=== PATIENT | male | born 1975 | race Two or more races ===

== ENCOUNTER 2024-01-04 23:36 | Emergency (ER) | payer MEDICAID, OTHER ==
[~2024-01-04] VITALS: Ht 170.2 cm; Wt 68.2 kg
[2024-01-05] MEDS: IBUPROFEN 600 MG TAB PO ONE (02:29)
[2024-01-05 02:52] VITALS: BP 153/85; PULSE 72; RESP 17; TEMP 97.8; O2SAT 97
[2024-01-05] MEDS ORDERED: IBUP-1454 PO (03:31)
== END 2024-01-05 04:28 | disposition home or self-care (01) ==
LOC: ER 23:36
DX: R07.81 Pleurodynia (principal); I10 Essential (primary) hypertension; E11.9 Type 2 diabetes mellitus without complications; W01.0XXA Fall on same level from slipping, tripping and stumbling without subsequent striking against object, initial encounter; Y93.89 Activity, other specified; Y92.89 Other specified places as the place of occurrence of the external cause; Y99.8 Other external cause status
CPT/HCPCS: 71250